=== PATIENT | male | born 1945 | race Caucasian/White ===

== ENCOUNTER 2016-12-15 15:31 | Emergency (ER) | payer OTHER, MEDICARE ==
--- NOTE | 2016-12-15 15:46 | CPEKG ---
Heart Rate: 126 RR Interval: 476 P-R Interval: 132 QRSD Interval: 86 QT Interval: 300 QTC Interval: 435 P [place]: 46 QRS [place]: 81 T Wave [place]: -54 EKG Severity - BORDERLINE ECG - EKG Impression: SINUS TACHYCARDIA EKG Impression: BORDERLINE RIGHT AXIS DEVIATION EKG Impression: BORDERLINE INFERIOR Q WAVES Electronically Signed By: Silviano Sifuentes 15-Dec-2016 16:02:22
[2016-12-15] MEDS ORDERED: NS 1,000 ML IV ONE ×2 (15:58→16:52)
--- NOTE | 2016-12-15 16:01 | EDPHY ---
H & P Stated Complaint: fast heart rate Time Seen by Provider: 12/15/16 15:42 HPI/ROS: CHIEF COMPLAINT: Tachycardia HISTORY OF PRESENT ILLNESS: The patient is a 71-year-old man who comes to the emergency department complaining of tachycardia since this morning. He has a significant cardiac history including 8 stents. He was admitted 1 year ago for chest pain and had a catheterization that showed clean arteries and stents. He also has history of diabetes a AAA that has been repaired with a graft. Significant anxiety and depression as well as intermittent vertigo treated with Thorazine. He is also on chronic prednisone for ulcerative colitis and recently tapered off of that yesterday. He sees Dr. Suarez from Cardiology and Dr. Lujan from Gastroenterology. The patient noticed that his heart rate was between 105 and 07/02/2009 day. He denies chest pain or shortness of breath. He does not feel dizzy. He states that he feels completely fine is concerned about why his heart rate is fast. His blood pressures been normal. He does not take any beta-blockers. He does not take he does take several herbal medications. He was seen in the ER at [facility] on Tuesday for intractable vomiting and vertigo. His symptoms resolved with Thorazine. He has not been vomiting since. REVIEW OF SYSTEMS: Constitutional: denies: chills, fever, recent illness, recent injury EENTM: denies: blurred vision, double vision, nose congestion Respiratory: denies: cough, shortness of breath Cardiac: denies: chest pain, irregular heart rate, lightheadedness, palpitations Gastrointestinal/Abdominal: denies: abdominal pain, diarrhea, nausea, vomiting, blood streaked stools Genitourinary: denies: dysuria, frequency, hematuria, pain Musculoskeletal: denies: joint pain, muscle pain Skin: denies: lesions, rash, jaundice, bruising Neurological: denies: headache, numbness, paresthesia, tingling, dizziness, weakness Hematologic/Lymphatic: denies: blood clots, easy bleeding, easy bruising Immunologic/allergic: denies: HIV/AIDS, transplant EXAM: GENERAL: Well-appearing, well-nourished and in no acute distress. HEAD: Atraumatic, normocephalic. EYES: Pupils equal round and reactive to light, extraocular movements intact, sclera anicteric, conjunctiva are normal. ENT: TMs normal, nares patent, oropharynx clear without exudates. Moist mucous membranes. NECK: Normal range of motion, supple without lymphadenopathy or JVD. LUNGS: Breath sounds clear to auscultation bilaterally and equal. No wheezes rales or rhonchi. HEART: Tachycardia Regular rate and rhythm without murmurs, rubs or gallops. ABDOMEN: Soft, nontender, normoactive bowel sounds. No guarding, no rebound. No masses appreciated. BACK: No CVA tenderness, no spinal tenderness, step-offs or deformities EXTREMITIES: Normal range of motion, no pitting or edema. No clubbing or cyanosis. NEUROLOGICAL: Cranial nerves II through XII grossly intact. Normal speech, normal gait. 5/5 strength, normal movement in all extremities, normal sensation PSYCH: Normal mood, normal affect. SKIN: Warm, dry, normal turgor, no visible rashes or lesions. Source: Patient Exam Limitations: No limitations - Personal History Current Tetanus/Diphtheria Vaccine: Yes Current Tetanus Diphtheria and Acellular Pertussis (TDAP): Yes Tetanus Vaccine Date: 2015 - Medical/Surgical History Hx Asthma: No Hx Chronic Respiratory Disease: No Hx Diabetes: Yes Hx Cardiac Disease: Yes Hx Renal Disease: No Hx Cirrhosis: No Hx Alcoholism: Yes Hx HIV/AIDS: No Hx Splenectomy or Spleen Trauma: No Other PMH: 8 cardiac stents, demian; wisdom teeth extraction; aorta aneurysm repair; left hand sx; T2DM; anxiety; depression, urinary tract inflamation; ulcertive cholitis, proctitis, PANCREATITIS, - Family History Significant Family History: No pertinent family hx - Social History Smoking Status: Former smoker Alcohol Use: Sober Drug Use: None Constitutional: Initial Vital Signs Temperature (C) 36.5 C 12/15/16 15:34 Heart Rate 123 H 12/15/16 15:34 Respiratory Rate 16 12/15/16 15:34 Blood Pressure 113/79 12/15/16 15:34 O2 Sat (%) 95 12/15/16 15:34 O2 Delivery Mode Room Air Allergies/Adverse Reactions: scopolamine [Scopolamine] Allergy (Unknown, Verified 02/16/16 09:58) Home Medications: Medication Instructions Recorded Atorvastatin Calcium [Lipitor 40 40 mg PO HS 07/03/12 mg (*)] Clopidogrel Bisulfate [Plavix (*)] 75 [facility] 07[facility]12 [place]-3 Fatty Acids/Fish Oil 1,000 mg PO BID 07/03/12 [[place] 3 1,000 mg Softgel] buPROPion XL [Wellbutrin 150mg XL] 150 mg PO DAILY 07/03/12 Herbals/Supplements -Info Only 1 ea PO DAILY 12/23/15 Losartan/Hydrochlorothiazide 1 each PO HS 12/23/15 [Hyzaar 100-12.5 Tablet] Mirtazapine [Remeron] 30 mg PO HS 12/23/15 busPIRone [Buspar (*)] 15 mg PO DAILY 12/23/15 busPIRone [Buspar (*)] 30 mg PO HS 12/23/15 Cholecalciferol Vit D3 [Vitamin D3 2,000 units PO BID 02/16/16 2000 units tab (OTC)] Balsalazide Disodium [Colazal (*)] 2,250 mg PO TID #180 cap 02/17/16 Ondansetron Odt [Zofran Odt 4 mg 4 - 8 mg PO Q4 PRN #40 tab 02/17/16 (*)] glipiZIDE [Glipizide] 2.5 mg PO BID #60 tablet 02/17/16 LORazepam [Ativan (*)] 1 mg PO HS PRN 03/02/16 predniSONE 20 mg PO DAILY 03/02/16 Acetaminophen [Tylenol 325mg (*)] 650 mg PO QID PRN #0 tab 03/03/16 Aspirin EC [Aspirin EC 81 mg (*)] 81 mg PO DAILY #0 tab 03/03/16 Nitroglycerin [Nitrostat 0.4 mg 0.4 mg SL PRN PRN #1 btl 03/03/16 (*)] Medical Decision Making - Diagnostics EKG Interpretation: An EKG obtained and was read and documented in trace view. Please see trace view for full reading and report. Sinus tachycardia, no acute ischemic changes An EKG obtained and was read and documented in trace view. Please see trace view for full reading and report. Sinus rhythm, nonspecific T-wave abnormalities ischemia ED Course/Re-evaluation: 4:50 p.m. the patient is doing well. He remains asymptomatic. His heart rate has been in the 90's for the last 30 minutes. Repeat EKG shows sinus rhythm with no acute ischemic changes. 5:30 p.m. patient is feeling completely asymptomatic. His heart rate remains in the 80s. His blood pressure is stable. 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 He understands and agrees with this plan. He declines further workup or testing at this time. Differential Diagnosis: Partial list of the Differential diagnosis considered include but were not limited to; dehydration, arrhythmia and although unlikely based on the history and physical exam, I also considered acute coronary disease, PE, pneumothorax. I discussed these differential diagnoses and the plan with the patient as well as the usual and expected course. The patient understands that the diagnosis is provisional and that in medicine we are not always correct and that further workup is often warranted. Usual and customary warnings were given. All of the patient's questions were answered. The patient was instructed to return to the emergency department should the symptoms at all worsen or return, otherwise to followup with the physician as we discussed. - Data Points Laboratory Results: Laboratory Results 12/15/16 16:08 12/15/16 16:08 12/15/16 12/15/16 12/15/16 16:08 16:08 16:08 WBC 10.40 10^3/uL H 10^3/uL (3.80-9.50) RBC 5.24 10^6/uL 10^6/uL (4.40-6.38) Hgb 16.0 g/dL g/dL (13.7-17.5) Hct 47.4 % % (40.0-51.0) MCV 90.5 fL fL (81.5-99.8) MCH 30.5 pg pg (27.9-34.1) MCHC 33.8 g/dL g/dL (32.4-36.7) RDW 14.5 % % (11.5-15.2) Plt Count 244 10^3/uL 10^3/uL (150-400) MPV 10.5 fL fL (8.7-11.7) Neut % (Auto) 63.3 % % (39.3-74.2) Lymph % (Auto) 23.7 % % (15.0-45.0) [place] % (Auto) 9.8 % % (4.5-13.0) Eos % (Auto) 1.0 % % (0.6-7.6) Baso % (Auto) 0.8 % % (0.3-1.7) Nucleat RBC Rel Count 0.0 % % (0.0-0.2) Absolute Neuts (auto) 6.59 10^3/uL H 10^3/uL (1.70-6.50) Absolute Lymphs (auto) 2.46 10^3/uL 10^3/uL (1.00-3.00) Absolute Monos (auto) 1.02 10^3/uL H 10^3/uL (0.30-0.80) Absolute Eos (auto) 0.10 10^3/uL 10^3/uL (0.03-0.40) Absolute Basos (auto) 0.08 10^3/uL 10^3/uL (0.02-0.10) Absolute Nucleated RBC 0.00 10^3/uL 10^3/uL (0-0.01) Immature Gran % 1.4 % H % (0.0-1.1) Immature Gran # 0.15 10^3/uL H 10^3/uL (0.00-0.10) PT 13.1 SEC SEC (12.0-15.0) INR 1.00 (0.83-1.16) APTT 25.8 SEC SEC (23.0-38.0) D-Dimer 0.43 ug/mLFEU ug/mLFEU (0.00-0.50) Sodium 139 mEq/L mEq/L (134-144) Potassium 4.2 mEq/L mEq/L (3.5-5.2) Chloride 103 mEq/L mEq/L (97-110) Carbon Dioxide 21 mEq/l L mEq/l (22-31) Anion Gap 15 mEq/L mEq/L (8-16) BUN 25 mg/dL H mg/dL (7-23) Creatinine 1.4 mg/dL H mg/dL (0.7-1.3) Estimated GFR 50 Glucose 178 mg/dL H mg/dL (70-100) Calcium 10.2 mg/dL mg/dL (8.5-10.4) Troponin I < 0.012 ng/mL ng/mL (0-0.034) Medications Given: Discontinued Medications Sodium Chloride (Ns) 1,000 mls @ 0 mls/hr IV ONCE ONE; Wide Open PRN Reason: Protocol Stop: 12/15/16 15:59 Last Admin: 12/15/16 16:10 Dose: 1,000 mls Sodium Chloride (Ns) 1,000 mls @ 0 mls/hr IV ONCE ONE; Wide Open PRN Reason: Protocol Stop: 12/15/16 16:53 Last Admin: 12/15/16 17:09 Dose: 1,000 mls Departure - Departure Disposition: Home, Routine, Self-Care Clinical Impression: Dehydration, Tachycardia Condition: Fair Instructions: Dehydration (ED), Tachycardia (ED) Referrals: Liborio Garsia MD [Primary Care Provider] - As per Instructions
[2016-12-15 16:32] LABS: % IMMATURE GRANULYOCYTES 1.4 % (0.0-1.1); ABSOLUTE IMMATURE GRANULOCYTES 0.15 10^3/uL (0.00-0.10); ADD DIFF? NO; ADD MORPH? NO; ADD SCAN? NO; ATYPICAL LYMPHOCYTE FLAG 10 (0-99); FRAGMENT RBC FLAG 0 (0-99); HEMATOCRIT 47.4 % (40.0-51.0); LEFT SHIFT FLG 10 (0-99); LIPEMIA HEMOLYSIS FLAG 90 (0-99); MEAN CELL HEMOGLOBIN 30.5 pg (27.9-34.1); MEAN CELL HEMOGLOBIN CONCENTR. 33.8 g/dL (32.4-36.7); MEAN CELL VOLUME 90.5 fL (81.5-99.8); MEAN PLATELET VOLUME 10.5 fL (8.7-11.7); PLATELET CLUMPS FLAG 10 (0-99); PLATELET COUNT 244 10^3/uL (150-400); RED BLOOD CELL COUNT 5.24 10^6/uL (4.40-6.38); RED CELL DISTRIBUTION WIDTH 14.5 % (11.5-15.2)
[2016-12-15 16:43] LABS: APTT 25.8 SEC (23.0-38.0); PROTIME(PATIENT) 13.1 SEC (12.0-15.0)
[2016-12-15 16:49] LABS: ANION GAP 15 mEq/L (8-16); CALCIUM 10.2 mg/dL (8.5-10.4); CARBON DIOXIDE 21 mEq/l (22-31); CHLORIDE 103 mEq/L (97-110); CREATININE 1.4 mg/dL (0.7-1.3); GLOMERULAR FILTRATION RATE 50; GLUCOSE 178 mg/dL (70-100); POTASSIUM 4.2 mEq/L (3.5-5.2); SODIUM 139 mEq/L (134-144)
--- NOTE | 2016-12-15 16:50 | CPEKG ---
Heart Rate: 96 RR Interval: 625 P-R Interval: 140 QRSD Interval: 90 QT Interval: 392 QTC Interval: 496 P [place]: 31 QRS [place]: 45 T Wave [place]: -19 EKG Severity - ABNORMAL ECG - EKG Impression: SINUS RHYTHM EKG Impression: BORDERLINE INFERIOR Q WAVES EKG Impression: BORDERLINE T ABNORMALITIES, INFERIOR LEADS EKG Impression: BORDERLINE PROLONGED QT INTERVAL Electronically Signed By: Silviano Sifuentes 15-Dec-2016 16:50:58
[2016-12-15 17:01] LABS: TROPONIN I < 0.012 ng/mL (0-0.034)
[2016-12-15 17:49] VITALS: BP 136/78; PULSE 84; RESP 15; TEMP 98.8; O2SAT 96
== END 2016-12-15 17:48 | disposition home or self-care (01) ==
DX: R00.0 Tachycardia, unspecified (principal); E86.0 Dehydration; E11.9 Type 2 diabetes mellitus without complications; Z79.82 Long term (current) use of aspirin; Z87.891 Personal history of nicotine dependence

== ENCOUNTER 2016-12-25 23:25 | Emergency (ER) | payer OTHER, MEDICARE ==
--- NOTE | 2016-12-25 23:36 | CPEKG ---
Heart Rate: 123 RR Interval: 488 P-R Interval: 160 QRSD Interval: 86 QT Interval: 304 QTC Interval: 435 P [place]: 45 QRS [place]: 75 T Wave [place]: -87 EKG Severity - BORDERLINE ECG - EKG Impression: SINUS TACHYCARDIA EKG Impression: BORDERLINE R WAVE PROGRESSION, ANTERIOR LEADS Electronically Signed By: Anselmo Reza 26-Dec-2016 05:17:34
[2016-12-26] MEDS ORDERED: LORazepam 0.5 MG TAB PO ONE (00:26)
--- NOTE | 2016-12-26 01:05 | EDPHY ---
H & P Stated Complaint: "my heart is racing again." Time Seen by Provider: 12/25/16 23:47 HPI/ROS: Chief Complaint: Heart racing HPI: This is a 71-year-old male with a past medical history of coronary artery disease, status post stenting x8 with a clean catheterization a year ago, AAA repair, diabetes, anxiety and depression presenting complaining of palpitations and tachycardia. Patient was seen here 9 days ago with complaints of tachycardia with a heart rate of 120 at that time. He had a negative workup including a normal ECG, normal troponin, normal D-dimer. Patient's since follow up with Dr. Jimenez had repeat blood testing done including a cortisol level and thyroid function tests which were normal. Patient had completed a steroid taper 14 days ago for an ulcerative colitis flare. Denies any chest pain. No shortness of breath. No nausea or vomiting. No recent weight loss or gain. He has been quite anxious and is checked his blood pressure and heart rate multiple times today. Patient states he did wake up at 5 in the morning in notice heart rate was 112 at that time. Heart has since come down. He says that blood pressures running in the 140 systolic which is unusually high for him and this is causing him to feel anxious. He is also concerned about his heart rate. He has contacted his potato picker, Dr. Suarez and has an appointment with him in about 2 weeks. He states that Dr. Suarez did not seem concerned at that time. Denies any other recent changes in medications. Otherwise without complaint. ROS: 10 point Review of Systems is negative except as noted in the HPI. PMH: Coronary artery disease status post stenting x8, clean catheterization 1 year ago Diabetes AAA repair with graft Anxiety and depression Vertigo Ulcerative colitis Social History: No smoking, no alcohol, no recreational drug use, drinks 1 2-1/ 2 cups of coffee every morning Family History: non-contributory Physical Exam: Gen: Awake, Alert, anxious appearing HEENT: Nose: no rhinorrhea Eyes: PERRLA, EOMI Mouth: Moist mucosa Neck: Supple, no JVD Chest: nontender, lungs clear to auscultation, diminished lung sounds to right base Heart: S1, S2 normal, no murmur Abd: Soft, non-tender, no guarding Back: no CVA tenderness, no midline tenderness Ext: no edema, non-tender Skin: no rash Neuro: CN II-XII intact, Sensation grossly intact, Strength 5/5 in bilateral upper and lower extremities - Personal History Current Tetanus/Diphtheria Vaccine: Yes Tetanus Vaccine Date: 2015 - Medical/Surgical History Hx Asthma: No Hx Chronic Respiratory Disease: No Hx Diabetes: Yes Hx Cardiac Disease: Yes Hx Renal Disease: No Hx Cirrhosis: No Hx Alcoholism: Yes Hx HIV/AIDS: No Hx Splenectomy or Spleen Trauma: No Other PMH: 8 cardiac stents, demian; wisdom teeth extraction; aorta aneurysm repair; left hand sx; T2DM; anxiety; depression, urinary tract inflamation; ulcertive cholitis, proctitis, PANCREATITIS, - Social History Smoking Status: Former smoker Constitutional: Initial Vital Signs Temperature (C) 37.4 C 12/25/16 23:27 Heart Rate 126 H 12/25/16 23:27 Respiratory Rate 16 12/25/16 23:27 Blood Pressure 165/83 H 12/25/16 23:27 O2 Sat (%) 94 12/25/16 23:27 O2 Delivery Mode Room Air Allergies/Adverse Reactions: scopolamine [Scopolamine] Allergy (Unknown, Verified 02/16/16 09:58) Home Medications: Medication Instructions Recorded Atorvastatin Calcium [Lipitor 40 40 mg PO HS 07/03/12 mg (*)] Clopidogrel Bisulfate [Plavix (*)] 75 mg PO SUMOTUWETHFR 07/03/12 [place]-3 Fatty Acids/Fish Oil 1,000 mg PO BID 07/03/12 [[place] 3 1,000 mg Softgel] buPROPion XL [Wellbutrin 150mg XL] 150 mg PO DAILY 07/03/12 Herbals/Supplements -Info Only 1 ea PO DAILY 12/23/15 Losartan/Hydrochlorothiazide 1 each PO HS 12/23/15 [Hyzaar 100-12.5 Tablet] Mirtazapine [Remeron] 30 mg PO HS 12/23/15 busPIRone [Buspar (*)] 15 mg PO DAILY 12/23/15 busPIRone [Buspar (*)] 30 mg PO HS 12/23/15 Cholecalciferol Vit D3 [Vitamin D3 2,000 units PO BID 02/16/16 2000 units tab (OTC)] Balsalazide Disodium [Colazal (*)] 2,250 mg PO TID #180 cap 02/17/16 Ondansetron Odt [Zofran Odt 4 mg 4 - 8 mg PO Q4 PRN #40 tab 02/17/16 (*)] glipiZIDE [Glipizide] 2.5 mg PO BID #60 tablet 02/17/16 LORazepam [Ativan (*)] 1 mg PO HS PRN 03/02/16 predniSONE 20 mg PO DAILY 03/02/16 Acetaminophen [Tylenol 325mg (*)] 650 mg PO QID PRN #0 tab 03/03/16 Aspirin EC [Aspirin EC 81 mg (*)] 81 mg PO DAILY #0 tab 03/03/16 Nitroglycerin [Nitrostat 0.4 mg 0.4 mg SL PRN PRN #1 btl 03/03/16 (*)] Medical Decision Making - Diagnostics EKG Interpretation: ECG time 11:34 p.m. sinus tachycardia with a rate of 123, border why R-wave progression, no acute ST or T-wave changes, unchanged from an ECG on the 15 December 2016. Imaging Results: Chest x-ray shows a chronically elevated right hemidiaphragm unchanged from prior, no acute infiltrates. Study was interpreted by me. Imaging: I viewed and interpreted images myself ED Course/Re-evaluation: 8-year-old male presenting with complaints of tachycardia palpitations. He had exact same symptoms 9 days ago an extensive workup including D-dimer, troponin, ECG. Patient also said with subsequently seen primary care had cortisol levels and TSH levels which were normal. Patient has not had any other associated chest pain or any other symptoms. He is quite anxious here. He has checked his blood pressure and heart rate multiple times today and has several pages of multiple days worth of reading is written down. I do believe that he is quite anxious about this. He has been in contact with his potato picker and has an appointment in 2 weeks time. No evidence acute ischemia or other process at this time. He has diminished at the right base but I have notice that he has had a elevated right hemidiaphragm in the past. Will check a chest x-ray hearing given 0.5 mg of Ativan to see if this helps with his tachycardia. Patient is improved after 0.5 mg of Ativan. Heart rate is down to 98. Chest x- ray is negative. I spoke with him at length. He has had extensive testing last couple of weeks with no significant findings. There is no new findings suggestive another cause today. I have reassured him that there is nothing that appears acute at this time. He will follow up with his potato picker in 2 weeks as scheduled. Return for any concerns. - Data Points Medications Given: Discontinued Medications Lorazepam (Ativan) 0.5 mg PO EDNOW ONE Stop: 12/26/16 00:27 Last Admin: 12/26/16 00:36 Dose: 0.5 mg Departure - Departure Disposition: Home, Routine, Self-Care Clinical Impression: Tachycardia Condition: Good Instructions: Tachycardia (ED) Additional Instructions: Follow up with your potato picker on January 11 as scheduled. Follow up with your primary care physician in 2-3 days. Return to the emergency depart for increasing pain, shortness of breath, worsening palpitations, fevers, chills, or any other concerns. Referrals: Liborio Garsia MD [Primary Care Provider] - As per Instructions
[2016-12-26 01:57] VITALS: BP 118/72; PULSE 94; RESP 16; TEMP 98.2; O2SAT 96
== END 2016-12-26 01:57 | disposition home or self-care (01) ==
DX: R00.0 Tachycardia, unspecified (principal); E11.9 Type 2 diabetes mellitus without complications; I25.10 Atherosclerotic heart disease of native coronary artery without angina pectoris; Z79.82 Long term (current) use of aspirin; Z87.891 Personal history of nicotine dependence; Z95.5 Presence of coronary angioplasty implant and graft

== ENCOUNTER → 2016-12-28 | Outpatient (CLI) | payer OTHER, MEDICARE ==
[~2016-12-28] MED LIST: GADOBUTROL 10 ML VIAL IVP ONE
== END ==
LOC: FIMAGING 15:54
PROVIDERS: ATTEND Specialist
DX: H91.90 Unspecified hearing loss, unspecified ear (principal); R42 Dizziness and giddiness
CPT/HCPCS: 70553; A9585

== ENCOUNTER 2017-06-13 16:15 | Inpatient (IN) | payer OTHER, MEDICARE ==
--- NOTE | 2017-06-13 16:38 | EDPHY ---
H & P Stated Complaint: dx + flu/lung inf given azithromycin/increasing sob/weakness with any exert HPI/ROS: CHIEF COMPLAINT: Shortness of breath, weakness HISTORY OF PRESENT ILLNESS: The patient is a 71 y/o male with a history of diabetes, coronary artery disease status post stenting, aortic aneurysm repair, ulcerative colitis, and pancreatitis; complaining of shortness of breath and weakness. Three weeks ago he was diagnosed with Flu A; he did receive a flu vaccination this year. Seven days after he was diagnosed with the flu, he was diagnosed with a lung infection and prescribed azithromycin. His symptoms began to improve after the antibiotic. On Tuesday, 2 days ago, he began to feel short of breath and weak, primarily when exerting himself. On Tuesday, 1 day ago, he had "gas pains" that were relieved when he had a bowel movement; he had a total of 6 bowel movements yesterday (not unusual for him due to his ulcerative colitis--for which he takes prednisone 35 mg daily). In addition to his dyspnea and weakness, he is dizzier than usual. He has been sleeping more for the past 2 days; and has an increased heart rate today. Has been able to eat and drink. Denies chest pain, headache, urinary complaints, numbness, or other pertinent symptoms. REVIEW OF SYSTEMS: A ten point review of systems was performed and is negative with the exception of the items mentioned in the HPI. Past medical history: Type 2 Diabetes Ulcerative colitis Cholecystitis Pancreatitis Vertigo Anxiety Depression Past surgical history: 8 Cardiac stents Aortic abdominal aneurysm repair Family history: Denies Social history: at bedside Lives in [place] Retired Former smoker General Appearance: Alert. Vital signs reviewed. Heart rate 110 at the time of my interview. Afebrile. Eyes: Pupils equal and round, no conjunctival injection, no discharge. Anicteric. ENT, Mouth: Mucous membranes are dry, no oropharyngeal erythema or edema. Neck: No lymphadenopathy, supple. Trachea midline. Respiratory: Lungs are clear to auscultation; no wheezes, rales, or rhonchi. Cardiovascular: Tachycardic,; no murmur, rub, or gallop. Gastrointestinal: Abdomen is soft and nontender, no masses or organomegaly, bowel sounds normal. Skin: Warm and dry, no rashes on exposed skin, normal color. Back: Nontender to palpation over the thoracolumbar spine. No CVAT. Extremities: Feet are cool and mottled. No lower extremity edema, no calf tenderness or swelling. Pulses: 1+ DP bilaterally. Neurological: Alert and oriented. Moving all four extremities easily and equally. Psychiatric: Normal affect. - Personal History Current Tetanus/Diphtheria Vaccine: Yes Tetanus Vaccine Date: 2015 - Medical/Surgical History Hx Asthma: No Hx Chronic Respiratory Disease: No Hx Diabetes: Yes Hx Cardiac Disease: Yes Hx Renal Disease: No Hx Cirrhosis: No Hx Alcoholism: Yes Hx HIV/AIDS: No Hx Splenectomy or Spleen Trauma: No Other PMH: 8 cardiac stents, demian; wisdom teeth extraction; aorta aneurysm repair; left hand sx; T2DM; anxiety; depression, urinary tract inflamation; ulcertive cholitis, proctitis, PANCREATITIS, - Social History Smoking Status: Former smoker Constitutional: Initial Vital Signs Temperature (C) 36.3 C 06/13/17 16:33 Heart Rate 99 06/13/17 16:33 Respiratory Rate 20 06/13/17 16:33 Blood Pressure 103/70 06/13/17 16:33 O2 Sat (%) 99 06/13/17 16:33 O2 Delivery Mode Room Air Allergies/Adverse Reactions: scopolamine [Scopolamine] Allergy (Unknown, Verified 06/13/17 19:52) Other-Enter Comments Home Medications: Medication Instructions Recorded Aspirin [Aspirin 81mg (*)] 81 mg PO EVERY OTHER DAY@06/13/17 Atorvastatin Calcium [Lipitor 20 20 mg PO EVERY OTHER DAY@06/13/17 mg (*)] Cholecalciferol (Vitamin D3) 10,000 unit PO DAILY 06/13/17 [Vitamin D3] DULoxetine [Cymbalta 60 MG (*)] 60 mg PO DAILY 06/13/17 Herbals/Supplements -Info Only 1 ea PO DAILY 06/13/17 Losartan Potassium [Cozaar] 100 mg PO HS 06/13/17 Naltrexone HCl 4.5 mg PO DAILY 06/13/17 [place]-3 Fatty Acids [Fish Oil 1000 2,000 mg PO BID 06/13/17 mg (*)] buPROPion XL [Wellbutrin 150mg XL] 150 mg PO DAILY 06/13/17 glipiZIDE [Glucotrol 5 mg] 5 mg PO HS 06/13/17 glipiZIDE [Glucotrol 5 mg] 10 mg PO DAILY 06/13/17 predniSONE 35 mg PO DAILY 06/13/17 Metoprolol Tartrate [Lopressor 25 12.5 - 25 mg PO BID #60 tab 06/15/17 mg (*)] Medical Decision Making - Diagnostics Imaging: I viewed and interpreted images myself ED Course/Re-evaluation: The patient is a 71 y/o male with a history of diabetes, cardiac stents, aortic aneurysm repair, ulcerative colitis, and pancreatitis; presenting with weakness and dyspnea. However, he is able to talk in full sentences despite his dyspnea. 3 weeks ago he was diagnosed with Flu A and a lung infection but began to feel better after Azithromycin. On exam he is tachycardic and has dry mucous membranes. His lungs are clear to auscultation. Plan on EKG and chest x-ray. 500mL IV NS and DuoNeb administered. 1644: The 12 lead EKG was interpreted by myself as sinus tachycardia with a rate of 107. See hard copy and/or "tracemaster" electronic copy for interpretation. This EKG is not remarkably different from prior EKG's. 1725: Chest x-ray without infiltrate. 1734: Patient's troponin is 0.039, indeterminate range, and BUN is 43 with a creatinine of 2.2. I suspect dehydration. He does take a diuretic, prescribed for ear symptoms by ENT, and states that he urinates frequently. This might also account for his tachycardia that worsens with exertion. Other abnormalities include anion gap of 22. Calcium [place] [address]. I am also concerned about an infectious etiology for his dyspnea although no infiltrate seen on CXR. I do not find evidence of congestive heart failure on his chest x-ray. No pneumothorax. 1800: Reassessed patient and discussed laboratory and imaging findings. His O2Sats while walking are 95%, however he becomes tachycardic when he stands up. 1844: Consulted with hospitalist service, Dr. Bansal accepts admission of this patient. Blood cultures and urinalysis ordered. 1855: Reassessed patient and discussed plan for admission; patient and his are comfortable with this plan. Differential Diagnosis: Shortness of breath including but not limited to hypovolemia, pulmonary infectious process, COPD, asthma, pulmonary embolus and congestive heart failure. - Data Points Laboratory Results: Laboratory Results 06/14/17 03:55 06/14/17 03:55 Medications Given: Discontinued Medications Albuterol/Ipratropium (Duoneb) 3 ml IH EDNOW ONE Stop: 06/13/17 17:03 Last Admin: 06/13/17 17:16 Dose: 3 ml Albuterol/Ipratropium (Duoneb) 3 ml IH QID [place] Stop: 12/10/17 20:59 Last Admin: 06/14/17 15:37 Dose: Not Given Aspirin (Aspirin) 81 mg PO EVERY OTHER DAY@21 [place] Stop: 12/10/17 20:59 Last Admin: 06/13/17 21:44 Dose: 81 mg Atorvastatin Calcium (Lipitor) 20 mg PO EVERY OTHER DAY@21 [facility] Stop: 12/10/17 20:59 Last Admin: 06/13/17 21:44 Dose: 20 mg Bupropion HCl (Wellbutrin Xl) 150 mg PO DAILY [place] Stop: 12/11/17 08:59 Last Admin: 06/15/17 09:01 Dose: 150 mg Duloxetine HCl (Cymbalta) 60 mg PO DAILY [place] Stop: 12/11/17 08:59 Last Admin: 06/15/17 09:01 Dose: 60 mg Glipizide (Glucotrol) 5 mg PO HS [facility] Stop: 12/11/17 20:59 Last Admin: 06/14/17 20:50 Dose: 5 mg Glipizide (Glucotrol) 10 mg PO DAILY [place] Stop: 12/11/17 10:59 Last Admin: 06/15/17 09:01 Dose: 10 mg Heparin Sodium (Porcine) (Heparin Sc Injection) 5,000 unit SC Q8 [place] Stop: 12/10/17 21:59 Last Admin: 06/14/17 20:49 Dose: 5,000 unit Sodium Chloride (Ns) 500 mls @ 1,000 mls/hr IV EDNOW ONE PRN Reason: Protocol Stop: 06/13/17 17:31 Last Admin: 06/13/17 17:16 Dose: 500 mls Sodium Chloride (1/2 Ns) 1,000 mls @ 100 mls/hr IV CONT [place] Stop: 12/10/17 20:29 Last Admin: 06/13/17 21:44 Dose: 1,000 mls Sodium Chloride (Ns) 1,000 mls @ 3,000 mls/hr IV ONCE ONE Stop: 06/13/17 20:52 Last Admin: 06/13/17 20:59 Dose: 1,000 mls Sodium Chloride (Ns) 1,000 mls @ 100 mls/hr IV CONT [place] Stop: 12/11/17 17:14 Last Admin: 06/14/17 19:24 Dose: 1,000 mls Insulin Human Lispro (Humalog Lispro) 0 unit SC TIDMEAL [facility] PRN Reason: Protocol Stop: 12/11/17 07:59 Last Admin: 06/15/17 09:26 Dose: Not Given Metoprolol Tartrate (Lopressor) 25 mg PO HS [facility] Stop: 12/10/17 20:59 Last Admin: 06/14/17 20:49 Dose: 25 mg Metoprolol Tartrate (Lopressor) 12.5 mg PO ONCE ONE Stop: 06/15/17 10:10 Last Admin: 06/15/17 10:23 Dose: 12.5 mg Miscellaneous Medication (Naltrexone Hcl) 4.5 mg PO DAILY [facility] Stop: 12/11/17 08:59 Last Admin: 06/15/17 09:04 Dose: 4.5 mg Prednisone (Prednisone) 35 mg PO DAILY [facility] Stop: 12/11/17 08:59 Last Admin: 06/15/17 09:02 Dose: 35 mg Prednisone (Prednisone) 40 mg PO ONCE ONE Stop: 06/14/17 17:15 Last Admin: 06/14/17 19:48 Dose: Not Given Departure - Departure Disposition: [facility] Acute Clinical Impression: Tachycardia, Weakness, Acute kidney injury Condition: Fair Report Scribed for: Gloria Ashley Report Scribed by: Laurence Morgan Date of Report: 06/13/17 Time of Report: 16:43 Physician Review and Approval Statement: 06/13/17 16:38 Portions of this note were transcribed by the medical record librarian. I, Dr. Gloria Ashley, personally performed the history, physical exam, and medical decision- making; and confirmed the accuracy of the information in the transcribed note.
--- NOTE | 2017-06-13 16:46 | CPEKG ---
Heart Rate: 107 RR Interval: 561 P-R Interval: 120 QRSD Interval: 78 QT Interval: 336 QTC Interval: 449 P [place]: 56 QRS [place]: 77 T Wave [place]: 18 EKG Severity - OTHERWISE NORMAL ECG - EKG Impression: SINUS TACHYCARDIA Electronically Signed By: Gloria Ashley 13-Jun-2017 19:08:11
[2017-06-13] MEDS ORDERED: NS 500 ML IV ONE (17:02)
[2017-06-13] MEDS ORDERED: IPRATROPIUM/ALBUTEROL 3 ML DEYVIAL IH ONE (17:02)
[2017-06-13 17:10] LABS: PLATELET COUNT 280 10^3/uL (150-400)
[2017-06-13] MEDS ORDERED: ONDANSETRON DISINTEGRATING 4 MG TAB PO PRN (20:19)
[2017-06-13] MEDS ORDERED: ONDANSETRON 4 MG/2 ML VIAL IVP PRN (20:19)
[2017-06-13] MEDS ORDERED: ACETAMINOPHEN 325 MG TAB PO PRN (20:19)
[2017-06-13] MEDS ORDERED: oxyCODONE IR 5 MG TAB PO PRN (20:19)
[2017-06-13] MEDS ORDERED: 1/2 NS 1,000 ML IV SCH (20:30)
[2017-06-13] MEDS ORDERED: NS 1,000 ML IV ONE (20:33)
[2017-06-13] MEDS ORDERED: ATORVASTATIN CALCIUM 20 MG TAB PO SCH (21:00)
[2017-06-13] MEDS ORDERED: ASPIRIN 81 MG CHEWABLE TAB PO SCH (21:00)
[2017-06-13] MEDS ORDERED: D50W 25 GM/50 ML SYR IVP PRN (21:16)
[2017-06-13] MEDS: IPRATROPIUM/ALBUTEROL 3 ML DEYVIAL IH SCH (21:36)
[2017-06-13] MEDS: HEPARIN 5,000 UNIT/0.5 ML SYR SC SCH (21:44)
[2017-06-13] MEDS: METOPROLOL TARTRATE 25 MG TAB PO SCH (21:44)
--- NOTE | 2017-06-13 21:51 | GHP ---
[f rep st] HISTORY AND PHYSICAL DATE OF ADMISSION: 06/13/2017 CHIEF COMPLAINT: Shortness of breath. HISTORY OF PRESENT ILLNESS: This is a 71-year-old man with ulcerative colitis, multiple medical prob lems, who presents with worsening shortness of breath. He reports that he had the flu 3 weeks ago, w as not treated. He then, a week or so later, had a course of azithromycin for feeling poorly and cou gh. He got better immediately thereafter. Yesterday, he had 6 bowel movements. He notably had been started on hydrochlorothiazide and triamterene for possible vertigo by his ENT physician. He presen ts today with symptoms of postural hypotension including a low systolic of 97 at home, dizziness when he stands, worsening tachycardia. He also reports some significant shortness of breath and weakness . He has been worked up for tachycardia. This began last summer. He saw Dr. Suarez who checked an echocardiogram, which he reports was normal and placed him on metoprolol. His resting heart rate is still in the 90s, which he says is fast for him. PAST MEDICAL/SURGICAL HISTORY: 1. Ulcerative colitis. 2. AAA status post repair. 3. Coronary artery disease, status post stents. 4. Anxiety and depression. 5. Peripheral vascular disease. 6. Hypertension. 7. Hyperlipidemia. 8. Spinal stenosis. 9. Diabetes mellitus type 2. 10. Pancreatitis, idiopathic. 11. Vertigo. MEDICATIONS: Please see medication reconciliation. ALLERGIES: Scopolamine. FAMILY HISTORY: Reviewed and noncontributory. SOCIAL HISTORY: He was accompanied by his who has stage IV cancer. She is getting intravenous medications and radiation tomorrow. REVIEW OF SYSTEMS: A 10-point review of systems was conducted and was negative, except per HPI. PHYSICAL EXAM: VITAL SIGNS: Blood pressure currently 119/65, heart rate 108, respiration rate 24, s aturating 95% on room air, temperature is 36.8. GENERAL: The patient is a pleasant man who is resti ng comfortably, appears mildly anxious. Otherwise, in no acute distress. HEENT: Shows him to be no rmocephalic, atraumatic. CARDIOVASCULAR: Regular rate and rhythm. No murmurs, rubs, or gallops. P ULMONARY: Lungs clear to auscultation bilaterally. ABDOMEN: He does have some mild right-sided abd ominal pain. SKIN: Shows no rash. : No Connolly. NEUROLOGIC: Exam shows him to be alert and orie nted x3. Moving all extremities. PSYCHIATRIC: Shows normal mood and affect. LABORATORY DATA: Creatinine is 2.2. Troponin 0.039. Calcium is 11. Hematocrit is 52.9. D-dimer 0 .44. DATA: 1. Chest x-ray, which I personally viewed and interpreted, shows nothing acute. A normal chest x-ra y. 2. EKG, which I personally viewed and interpreted, shows sinus tachycardia. There was nothing acute ly ischemic. 3. I discussed this with Dr. Ashley. Will admit to PCU. IMPRESSION AND PLAN: 1. Acute kidney injury: This is likely due to dehydration in the setting of new diuretic use. Will hold his losartan, hold hydrochlorothiazide/triamterene, provide him with IV fluids overnight, and r echeck tomorrow. 2. Dehydration: Likely accounts for his erythrocythemia, postural hypotension, dizziness, weakness, and acute kidney injury. Hold diuretics and rehydrate. 3. Shortness of breath: I think this is likely explained by his tachycardia and dehydration. Will go ahead and check a respiratory viral panel regardless. He did have a recent flu-like illness. 4. Leukocytosis: He is on prednisone, has ulcerative colitis. No clear indication of a bacterial i nfection at this time. Will recheck in the morning. 5. Coronary artery disease, status post stent: Continue his aspirin and metoprolol and statin. He has an indeterminate troponin, will trend these. Doubt that this is acute coronary syndrome at this point. 6. Hypertension: Continue metoprolol for now. Hold his other antihypertensives. 7. Vertigo: He is being worked up by an ENT doctor. Currently, dizziness sounds more postural than truly vertiginous. 8. Diabetes mellitus type 2: Follow his sugars. Place him on sliding scale. /[id number]/MODL
[2017-06-14 04:20] LABS: PLATELET COUNT 172 10^3/uL (150-400)
[2017-06-14] MEDS: IPRATROPIUM/ALBUTEROL 3 ML DEYVIAL IH SCH ×3 (05:29→15:37)
[2017-06-14] MEDS: INSULIN LISPRO 100 UNIT/ML SC SCH ×3 (08:40→18:26)
[2017-06-14] MEDS: DULoxetine 60 MG CAP PO SCH (10:17)
[2017-06-14] MEDS: HEPARIN 5,000 UNIT/0.5 ML SYR SC SCH ×3 (10:17→20:49)
[2017-06-14] MEDS: predniSONE 5 MG TAB PO SCH (10:17)
[2017-06-14] MEDS: buPROPion XL 150 MG TAB PO SCH (10:17)
[2017-06-14] MEDS: NALTREXONE HCL 4.5 MG PO SCH (10:18)
--- NOTE | 2017-06-14 11:06 | ASMTCMCOM ---
CM Note CM Note Notes: 06/14/2017 Case Management Note Reviewed chart, discussed with RN. There are no case management d/c needs identified d/t pt marital status, age and activity levels prior to admission. There are no PT or OT evals ordered at this time. Pt is independent in ADL's. Case Management d/c poc: Home independent with follow up as directed. Case Management available if needs change. Date Signed: 06/14/2017 11:06 AM Electronically Signed By:Carmen King RN
[2017-06-14] MEDS: glipiZIDE 5 MG TAB PO SCH (11:21)
[2017-06-14] MEDS ORDERED: predniSONE 20 MG TAB PO ONE (17:14)
[2017-06-14] MEDS ORDERED: NS 1,000 ML IV SCH (17:15)
--- NOTE | 2017-06-14 17:15 | HOSPPROG ---
Hospitalist Progress Note Assessment/Plan: * ARF due to hypovolemia - improved -stop triamterene/HCTZ, hold losartan -still tachycardic - suspect still hypovolemic (ddimer negative) -continue IVF * UC - chronic prednisone -suspect he may be relatively adrenal insufficient when under stress -extra 40mg prednisone tonight * CAD/stents 2011 - repeat cath 02/2016 with patent stents -no further ischemic work-up needed at this time * Vertigo - severe debilitating vertigo attacks -MRI negative * DM II * AAA s/p stent graft Subjective: Feeling better. Was ready to discharge home, but became tachycardic again HR 122 Objective: Vital Signs Temp Pulse Resp BP Pulse Ox 36.6 C 84 15 145/84 H 94 06/14/17 11:01 06/14/17 16:00 06/14/17 16:00 06/14/17 16:00 06/14/17 16:00 Microbiology 06/13/17 21:00 Respiratory Panel (PCR) - Final Nasal, Sinus - Gaastra Viral Transport No Organism Detected Laboratory Results 06/14/17 03:55 06/14/17 03:55 06/13/17 06/14/17 06/15/17 05:59 05:59 05:59 Intake Total 2585 320 Output Total 225 275 Balance 2360 45 EKG viewed, my personal interpretation is - sinus tachy CXR - negative - Physical Exam Constitutional: no apparent distress, appears nourished, not in pain Cardiovascular: regular rate and rhythym, no murmur, rub, or gallop Respiratory: no respiratory distress, no rales or rhonchi, clear to auscultation Gastrointestinal: normoactive bowel sounds, soft, non-tender abdomen, no palpable masses Skin: no rashes or abrasions, no fluctuance, no induration Neurologic: AAOx3, sensation intact bilaterally Psychiatric: interacting appropriately, not anxious, not encephalopathic, thought process linear ICD10 Worksheet Patient Problems: Problems Problem Status Onset Acute kidney injury Acute Tachycardia Acute Weakness Acute Chest pain Acute Dehydration Acute Pancreatitis Acute Proctitis Acute UC (ulcerative colitis) Acute
--- NOTE | 2017-06-14 19:00 | PDMN ---
Medical Necessity Medical necessity: change to IP; los>2mn for continued tachycardia w/hr 122, suspect r/t hypovolemia; requires continued IVF, medication adjustment, and monitoring; comorbid UC, CAD/stents, DM, AAA/s/p stent graft; per progress note and order 06/14/17
[2017-06-14] MEDS: METOPROLOL TARTRATE 25 MG TAB PO SCH (20:49)
[2017-06-14] MEDS ORDERED: glipiZIDE 5 MG TAB PO SCH (21:00)
[2017-06-15 04:29] LABS: PLATELET COUNT 137 10^3/uL (150-400)
[2017-06-15] MEDS: buPROPion XL 150 MG TAB PO SCH (09:01)
[2017-06-15] MEDS: glipiZIDE 5 MG TAB PO SCH (09:01)
[2017-06-15] MEDS: DULoxetine 60 MG CAP PO SCH (09:01)
[2017-06-15] MEDS: predniSONE 5 MG TAB PO SCH (09:02)
[2017-06-15] MEDS: NALTREXONE HCL 4.5 MG PO SCH (09:04)
[2017-06-15] MEDS: INSULIN LISPRO 100 UNIT/ML SC SCH (09:26)
[2017-06-15] MEDS ORDERED: METOPROLOL TARTRATE 25 MG TAB PO ONE (10:09)
[2017-06-15 11:46] VITALS: BP 149/72; PULSE 87; RESP 20; TEMP 97.5
[2017-06-15 12:35] VITALS: O2SAT 93
--- NOTE | 2017-06-15 12:35 | ASDISCHSUM ---
Discharge Information Plan Status:Home with No Needs Medically Cleared to Leave:06/14/2017 Discharge Date:06/15/2017 12:27 PM CM D/C Disposition:Home, Routine, Self-Care ADT D/C Disposition:Home, Routine, Self-Care Projected Discharge Date:06/15/2017 12:27 PM Transportation at D/C:Family Discharge Delay Reason: Follow-Up Date:06/15/2017 12:27 PM Discharge Slot: Final Diagnosis: Placement Information Patient Contact Information Contact Name:SAMMY Relationship: Address:[address] City:[place] Alternate Phone: [facility]/Zip Code:[place] [address] Email: Financial Information Financial Class: Primary Plan Desc:MEDICARE INPATIENT Primary Plan Number:[id number] Secondary Plan Desc:[employer]/MDR SUPPLEMENT Secondary Plan Number:[id number] Assessment Information [facility] CM Progress Note CM Note CM Note Notes: 06/14/2017 Case Management Note Reviewed chart, discussed with RN. There are no case management d/c needs identified d/t pt marital status, age and activity levels prior to admission. There are no PT or OT evals ordered at this time. Pt is independent in ADL's. Case Management d/c poc: Home independent with follow up as directed. Case Management available if needs change. Date Signed: 06/14/2017 11:06 AM Electronically Signed By:Carmen King RN LACE LACE Length of stay for Answers: Less than 1 day current admission Acuity / Level of Care Answers: Was the patient admitted to hospital via the emergency department? Yes: Comorbidities - select Answers: Cerebrovascular disease all that apply Peripheral vascular disease Mild liver or renal disease Emergency dept visits in Answers: 2 last 6 months Score: 9 Date Signed: 06/14/2017 12:43 PM Electronically Signed By:Carmen King RN Intervention Information Intervention Type:*JOHN-Signed Date of Service:06/14/2017 10:34 AM Patient Type:Observation Staff Member:Marita Hayes Hours: Discipline: Severity: Comment:
--- NOTE | 2017-06-16 05:31 | GDS ---
[f rep st] DISCHARGE SUMMARY DISCHARGE DIAGNOSES: 1. Acute renal failure due to hypovolemia. 2. Ulcerative colitis on high-dose prednisone. 3. Coronary artery disease, status post stents 2011. 4. Vertigo. 5. Diabetes type 2. 6. Abdominal aortic aneurysm, status post stent graft. 7. Tachycardia. HISTORY: The patient is a 71-year-old male, who presents with acute renal failure. He was recently started on triamterene/hydrochlorothiazide by ENT for a fluid buildup on the ear causing vertigo. Di uretic was held, and he was hydrated with IV fluid and had complete resolution of his renal failure. He desires complete discontinuation of the triamterene/hydrochlorothiazide from this point forward, and he will follow up with ENT for further management. The patient has been on prednisone for ulcer colitis for quite some time, and he complains of oversti mulation and tachycardia due to the prednisone. He was recently started on low-dose metoprolol at [facility], but he desires to increase it to twice a day. He thinks the vertigo attacks may be related to t he prednisone and tachycardia. I think he will tolerate low-dose metoprolol 12.5 mg p.o. b.i.d., and he may increase it up to 25 mg p.o. b.i.d. at home if needed. He follows his pulse and blood pressu re very closely at home with home monitoring. His D-dimer was negative, so I doubt pulmonary embolus . He had a recent cardiac catheterization in February 2016, which showed widely patent stents, so I do not think ischemia is an issue. DISCHARGE MEDICATIONS: Please see computerized record for full detailed list. New medications: Met oprolol increased to 12.5 to 25 mg p.o. b.i.d. Discontinued medications: Maxzide 75/50 one tab p.o. daily. ADDITIONAL DISCHARGE INSTRUCTIONS: Follow up with primary care and ENT. Greater than 30 minutes' time was spent arranging this discharge. Patient was seen and examined by cheerlle mendoza on the day of discharge. /[id number]/MODL
== END 2017-06-15 12:27 | disposition home or self-care (01) | DRG 683 ==
LOC: F2W 20:19 → OBSVTOIN 06-14 17:33
PROVIDERS: ADMIT Student in an Organized Health Care Education/Training Program; ATTEND Internal Medicine
DX: N17.9 Acute kidney failure, unspecified (principal); E86.1 Hypovolemia; K51.90 Ulcerative colitis, unspecified, without complications; I25.10 Atherosclerotic heart disease of native coronary artery without angina pectoris; R42 Dizziness and giddiness; E11.9 Type 2 diabetes mellitus without complications; Z79.52 Long term (current) use of systemic steroids; Z95.5 Presence of coronary angioplasty implant and graft
CPT/HCPCS: 97161-GP; G0378; G8978-GP-CI; G8979-GP-CI; G8980-GP-CI; J1815; J7512

== ENCOUNTER → 2017-11-24 | Outpatient (CLI) | payer OTHER, MEDICARE | LOC: BHFA 09:00 | PROVIDERS: ATTEND Internal Medicine Cardiovascular Disease | DX: I25.10 Atherosclerotic heart disease of native coronary artery without angina pectoris (principal); R06.09 Other forms of dyspnea ==

== ENCOUNTER → 2017-11-28 | Outpatient (CLI) | payer OTHER, MEDICARE | LOC: BHFA 08:30 | PROVIDERS: ATTEND Internal Medicine Cardiovascular Disease | DX: I25.10 Atherosclerotic heart disease of native coronary artery without angina pectoris (principal); R06.02 Shortness of breath | CPT/HCPCS: 78452; 93017; A9500; J2785 ==

== ENCOUNTER → 2017-12-05 | Outpatient (CLI) | payer OTHER, MEDICARE ==
[~2017-12-05] MED LIST changes: -GADOBUTROL 10 ML VIAL IVP ONE; +IOPAMIDOL (ISOVUE 370) 100 ML BTL IV ONE
== END ==
LOC: FIMAGING 15:12
PROVIDERS: ATTEND Internal Medicine
DX: I71.4 Abdominal aortic aneurysm, without rupture (principal); I70.0 Atherosclerosis of aorta; N28.1 Cyst of kidney, acquired
CPT/HCPCS: 71275; 74175; Q9967; 82565-PO

== ENCOUNTER 2018-09-19 18:38 | Emergency (ER) | payer OTHER, MEDICARE ==
[2018-09-19] MEDS ORDERED: ACETAMINOPHEN 325 MG TAB PO ONE (19:23)
[2018-09-19] MEDS ORDERED: ALBUTEROL 3 ML DEYVIAL IH ONE (19:47)
--- NOTE | 2018-09-19 19:50 | EDPHY ---
H & P Stated Complaint: cough, ST Time Seen by Provider: 09/19/18 19:22 HPI/ROS: CHIEF COMPLAINT: Cough, congestion HISTORY OF PRESENT ILLNESS: 72-year-old male with COPD presents with cough and congestion. Onset nasal congestion 2 days ago, associated with a productive cough. He saw his primary care physician yesterday who prescribed hydrocodone cough service. He continues to have spasms of severe coughing and difficulty catching his breath during the coughing spasms. Associated with a fever today. No shortness of breath or chest pain. He received a flu vaccination this year. REVIEW OF SYSTEMS: complete 10 point ROS reviewed and is negative except for the noted elements in the HPI - Personal History Current Tetanus/Diphtheria Vaccine: Yes Current Tetanus Diphtheria and Acellular Pertussis (TDAP): Yes Tetanus Vaccine Date: 2015 - Medical/Surgical History Hx Asthma: No Hx Chronic Respiratory Disease: No Hx Diabetes: Yes Hx Cardiac Disease: Yes Hx Renal Disease: No Hx Cirrhosis: No Hx Alcoholism: Yes Hx HIV/AIDS: No Hx Splenectomy or Spleen Trauma: No Other PMH: 8 cardiac stents, demian; wisdom teeth extraction; aorta aneurysm repair; left hand sx; T2DM; anxiety; depression, urinary tract inflamation; ulcertive cholitis, proctitis, PANCREATITIS, - Social History Smoking Status: Former smoker - Physical Exam Exam: General Appearance: Alert, pleasant, nontoxic-appearing Eyes: Pupils equal and round, no conjunctival pallor or injection ENT, Mouth: Mucous membranes moist Neck: Normal inspection Respiratory: Lungs are clear to auscultation, no wheezing Cardiovascular: Regular rate and rhythm Gastrointestinal: Abdomen is soft and nontender Neurological: A&O, nonfocal, normal gait Skin: Warm and dry Extremities: Normal inspection Psychiatric: Mood and affect normal Constitutional: Initial Vital Signs Temperature (C) 37.7 C 09/19/18 18:47 Heart Rate 67 09/19/18 18:47 Respiratory Rate 16 09/19/18 18:47 Blood Pressure 172/68 H 09/19/18 18:47 O2 Sat (%) 92 09/19/18 18:47 O2 Delivery Mode Room Air Allergies/Adverse Reactions: scopolamine [Scopolamine] Allergy (Unknown, Verified 09/19/18 18:45) Other-Enter Comments Home Medications: Medication Instructions Recorded Aspirin [Aspirin 81mg (*)] 81 mg PO EVERY OTHER DAY@21 18 Atorvastatin Calcium [Lipitor 20 20 mg PO EVERY OTHER DAY@06/13/17 mg (*)] Cholecalciferol (Vitamin D3) 10,000 unit PO DAILY 06/13/17 [Vitamin D3] DULoxetine [Cymbalta 60 MG (*)] 60 mg PO DAILY 06/13/17 Herbals/Supplements -Info Only 1 ea PO DAILY 06/13/17 Losartan Potassium [Cozaar] 100 mg PO HS 06/13/17 [place]-3 Fatty Acids [Fish Oil 1000 2,000 mg PO BID 06/13/17 mg (*)] buPROPion XL [Wellbutrin 150mg XL] 150 mg PO DAILY 06/13/17 glipiZIDE [Glucotrol 5 mg] 5 mg PO HS 06/13/17 glipiZIDE [Glucotrol 5 mg] 10 mg PO DAILY 06/13/17 Metoprolol Tartrate [Lopressor 25 12.5 - 25 mg PO BID #60 tab 06/15/17 mg (*)] Azithromycin [Zithromax] 250 mg PO DAILY #4 tab 09/19/18 Medical Decision Making - Diagnostics Imaging Results: Imaging Impressions Chest X-Ray 09/19/18 19:23 Impression: Chronic coronary artery disease. Nothing acute identified. Imaging: I viewed and interpreted images myself ED Course/Re-evaluation: This patient presents with paroxysms of severe coughing, associated with transient shortness of breath. Lung exam is normal. DuoNeb given. Feels better after the duoneb, decreased coughing. Chest-CTA. Chest x-ray reveals no evidence of pneumonia. Zithromax 500 mg orally given. Albuterol inhaler dispensed. Return precautions discussed. - Data Points Laboratory Results: Laboratory Results 09/19/18 19:37 09/19/18 19:37 09/19/18 09/19/18 09/19/18 19:42 19:37 19:37 WBC 7.43 10^3/uL 10^3/uL (3.80-9.50) RBC 4.70 10^6/uL 10^6/uL (4.40-6.38) Hgb 14.3 g/dL g/dL (13.7-17.5) Hct 43.9 % % (40.0-51.0) MCV 93.4 fL fL (81.5-99.8) MCH 30.4 pg pg (27.9-34.1) MCHC 32.6 g/dL g/dL (32.4-36.7) RDW 14.0 % % (11.5-15.2) Plt Count 227 10^3/uL 10^3/uL (150-400) MPV 10.7 fL fL (8.7-11.7) Neut % (Auto) 56.0 % % (39.3-74.2) Lymph % (Auto) 25.8 % % (15.0-45.0) [place] % (Auto) 14.9 % H % (4.5-13.0) Eos % (Auto) 2.2 % % (0.6-7.6) Baso % (Auto) 0.8 % % (0.3-1.7) Nucleat RBC Rel Count 0.0 % % (0.0-0.2) Absolute Neuts (auto) 4.16 10^3/uL 10^3/uL (1.70-6.50) Absolute Lymphs (auto) 1.92 10^3/uL 10^3/uL (1.00-3.00) Absolute Monos (auto) 1.11 10^3/uL H 10^3/uL (0.30-0.80) Absolute Eos (auto) 0.16 10^3/uL 10^3/uL (0.03-0.40) Absolute Basos (auto) 0.06 10^3/uL 10^3/uL (0.02-0.10) Absolute Nucleated RBC 0.00 10^3/uL 10^3/uL (0-0.01) Immature Gran % 0.3 % % (0.0-1.1) Immature Gran # 0.02 10^3/uL 10^3/uL (0.00-0.10) Sodium 135 mEq/L mEq/L (135-145) Potassium 5.0 mEq/L mEq/L (3.5-5.2) Chloride 101 mEq/L mEq/L (97-110) Carbon Dioxide 23 mEq/l mEq/l (22-31) Anion Gap 11 mEq/L mEq/L (6-14) BUN 17 mg/dL mg/dL (7-23) Creatinine 1.0 mg/dL mg/dL (0.7-1.3) Estimated GFR > 60 Glucose 151 mg/dL H mg/dL (70-100) Calcium 9.3 mg/dL mg/dL (8.5-10.4) Nasal Influenza A PCR NEGATIVE FOR FLU A (NEGATIVE) Nasal Influenza B PCR NEGATIVE FOR FLU B (NEGATIVE) Medications Given: Discontinued Medications Acetaminophen (Tylenol) 650 mg PO EDNOW ONE Stop: 09/19/18 19:24 Last Admin: 09/19/18 19:31 Dose: Not Given Albuterol (Proventil Neb) 3 ml IH EDNOW ONE Stop: 09/19/18 19:48 Last Admin: 09/19/18 19:55 Dose: 3 ml Azithromycin (Zithromax) 500 mg PO EDNOW ONE PRN Reason: Protocol Stop: 09/19/18 20:34 Last Admin: 09/19/18 20:39 Dose: 500 mg Departure - Departure Disposition: Home, Routine, Self-Care Clinical Impression: Acute bronchitis Condition: Good Instructions: Acute Bronchitis (ED) Additional Instructions: Use the albuterol inhaler 2 puffs 3 times daily as needed for cough and wheezing. Take antibiotics as prescribed. Return for worsening symptoms or any concerns. Referrals: Dariana Raines MD [Primary Care Provider] - As per Instructions Prescriptions: Azithromycin [Zithromax] 250 mg PO DAILY #4 tab
[2018-09-19 19:55] LABS: PLATELET COUNT 227 10^3/uL (150-400)
[2018-09-19] MEDS ORDERED: AZITHROMYCIN 250 MG TAB PO ONE (20:33)
[2018-09-19] MEDS ORDERED: ALBUTEROL INH PREPACK MDI TAKEHOME ONE (20:37)
[2018-09-19 20:53] VITALS: BP 166/90
== END 2018-09-19 20:52 | disposition home or self-care (01) ==
DX: J20.9 Acute bronchitis, unspecified (principal); Z95.5 Presence of coronary angioplasty implant and graft; E11.9 Type 2 diabetes mellitus without complications; F41.9 Anxiety disorder, unspecified; F32.9 Major depressive disorder, single episode, unspecified; Z87.891 Personal history of nicotine dependence
CPT/HCPCS: 71046; 99284; J7613